=== PATIENT | male | born 1960 | race Caucasian/White ===

== ENCOUNTER 2019-01-26 13:09 | Outpatient (CLI) | payer MEDICARE ==
--- NOTE | 2019-01-26 15:22 | ULT ---
BILATERAL RENAL ULTRASOUND: INDICATION: Chronic kidney disease. FINDINGS: There is symmetric length of each kidney approximately 11 cm. Within the left kidney there is a focus of altered echotexture measuring 2.6 cm and an additional foc us of complex echotexture within the left kidney measuring 2.2 cm. These findings demonstrate hetero geneous echotexture with areas of mild increased echogenicity. Findings favor complex cysts. There is no overt hydronephrosis of either kidney. The urinary bladder is mildly distended. IMPRESSION: 1. No overt hydronephrosis. 2. Mild complexity of cysts within the left kidney. Recommend a 6-month followup renal ultrasound t o confirm stability. POS: ANAIS
== END 2019-01-26 13:10 | disposition home or self-care (01) ==
LOC: SCSULT 13:09
PROVIDERS: ATTEND Internal Medicine Nephrology
DX: N18.3 Chronic kidney disease, stage 3 (moderate) (principal); N28.1 Cyst of kidney, acquired
CPT/HCPCS: 76770

== ENCOUNTER 2019-05-04 15:02 | Outpatient (CLI) | payer MEDICARE ==
--- NOTE | 2019-05-04 16:15 | CT ---
CT CHEST WITHOUT IV CONTRAST: 05/04/19 HISTORY: Thoracic aneurysm without rupture. Aortic valve replacement. COMPARISON: 06/14/17. FINDINGS: Vascular calcifications are present. There is a small 1.7 cm saccular aneurysm arising from the aorti c arch. This appears stable. There is interval increase in size of the descending thoracic aortic ane urysm measuring 5 cm in AP dimension on the current exam. No pleural or pericardial effusions are seen. Right lower lobe lung nodules measuring 8 and 14 mm respectively are stable. No new lung nodules are seen. There are degenerative changes in the spine. IMPRESSION: Interval increase in size of the descending thoracic aortic aneurysm since 06/14/17, currently measuri ng 5 cm. POS: ELVI
== END 2019-05-04 15:03 | disposition home or self-care (01) ==
LOC: BICCT 15:02
PROVIDERS: ATTEND Internal Medicine Cardiovascular Disease
DX: I71.2 Thoracic aortic aneurysm, without rupture (principal); Z95.2 Presence of prosthetic heart valve
CPT/HCPCS: 71250

== ENCOUNTER 2019-08-19 09:22 | Outpatient (CLI) | payer MEDICARE ==
--- NOTE | 2019-08-19 11:43 | ULT ---
RENAL ULTRASOUND: INDICATIONS: Follow up renal cyst. COMPARISON: Renal ultrasound exam performed on 01/26/2019. FINDINGS: The right kidney is imaged and appears unremarkable, measuring 10.5 cm in length. A small cyst, infer ior right kidney, measures 2.2 cm. No hydronephrosis. The left kidney is imaged and measures 10.5 cm in length. A cyst, inferior pole left kidney is seen, measuring 2.2 cm. This appears stable from the prior exam. Prior exam described two left renal cysts. A superior pole cyst seen previously is not identified on today's exam. The urinary bladder is distended and unremarkable. IMPRESSION: Bilateral renal cystic lesions are seen. These lesions appear benign on today's study. POS: OFF
== END 2019-08-19 09:23 | disposition home or self-care (01) ==
LOC: BICULT 09:22
PROVIDERS: ATTEND Internal Medicine Nephrology
DX: N28.1 Cyst of kidney, acquired (principal)
CPT/HCPCS: 76770

== ENCOUNTER 2019-10-13 11:16 | Outpatient (CLI) | payer MEDICARE ==
--- NOTE | 2019-10-13 12:03 | CT ---
CT CHEST WITHOUT CONTRAST CLINICAL INDICATION: Aortic valve replacement. Thoracic aortic aneurysm without rupture. Follow-up evaluation. COMPARISON: Noncontrast CT thorax on 05/04/2019 FINDINGS: Aorta: Prominent atherosclerotic vascular calcifications are again seen involving the coronary arteri es as well as the thoracic aorta. Postsurgical changes of the ascending thoracic aorta and aortic arch including aortic valve replacement are again noted. There is stable irregularity of the aortic a rch and proximal descending thoracic aorta. The proximal descending thoracic aortic aneurysm is again seen which measures 4.9 cm and unchanged in dimension. No periaortic fluid collection is identi fied. 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 Lungs: Lobulated densities in the right lower lobe with associated linear densities is again seen and stable compared to prior study as well as a prior study on 03/06/2012. Given stability over this period of time suggests a benign finding. Calcifications are associated with the largest nodular dens ity. Mediastinum: Limited secondary to lack of intravenous contrast, no enlarged lymph nodes are appreciat ed. Thyroid gland: Grossly normal nonenhanced CT appearance Osseous structures: Median sternotomy wires are again seen. No suspicious osseous lesions are seen. Chest wall: No abnormality visualized. Upper abdomen: Vascular calcifications are seen in the abdominal aorta. Colonic diverticulosis is pre sent at the splenic flexure. Remainder of the upper abdomen demonstrates grossly normal nonenhanced CT appearance. IMPRESSION: 1. Postsurgical changes ascending thoracic aorta related to prior repair of a thoracic aortic aneurys m as well as aortic valve replacement. 2. Focal proximal descending thoracic aortic aneurysm measuring 4.9 cm on stable in dimensions. Dense atherosclerotic vascular calcifications are seen in the thoracic aorta as well as involving the coronary arteries. 3. Stable ectasia of the innominate artery.
== END 2019-10-13 11:17 | disposition home or self-care (01) ==
LOC: BICCT 11:16
PROVIDERS: ATTEND Internal Medicine Cardiovascular Disease
DX: I71.2 Thoracic aortic aneurysm, without rupture (principal); Z95.2 Presence of prosthetic heart valve; I70.0 Atherosclerosis of aorta; I70.90 Unspecified atherosclerosis
CPT/HCPCS: 71250

== ENCOUNTER 2020-09-27 06:19 | Outpatient (CLI) | payer MEDICARE ==
[2020-09-27 13:37] LABS: #Eosinphils 0.1 10x3/uL (0.0-0.5); #Monocytes 0.8 10x3/uL (0.0-1.1); #Neutrophils 4.5 10x3/uL (1.5-8.4); %Basophils 0.4 % (0.0-2.0); %Eosinophils 2.1 % (0.0-6.0); %Lymphocytes 19.5 % (18.0-47.0); %Monocytes 11.2 % (0.0-10.0); %Neutrophils 66.5 % (40.0-75.0); Hemoglobin 12.9 g/dL (14.0-18.0); Mean Platelet Volume 10.2 fl (7.4-10.4); Platelet Count 224 10x3/uL (130-400); RBC Distribution Width 13.1 % (11.5-14.5); Red Blood Cell (RBC) Count 4.16 10x6/uL (4.40-5.80); White Blood Cell (WBC) Count 6.8 10x3/uL (4.5-11.0)
[2020-09-27 13:58] LABS: Anion Gap 18 mmol/L (10-20); BUN (Urea Nitrogen) 42 mg/dL (8.4-25.7); Calc. Creatinine Clearance 0 mL/min (70-130); Calcium 9.4 mg/dL (7.8-10.44); Carbon Dioxide 19 mmol/L (22-29); Chloride 109 mmol/L (98-107); Estimated GFR-MDRD 25; Glucose 74 mg/dL (70-105); Sodium 141 mmol/L (136-145)
[2020-09-28 10:54] LABS: SARS-CoV-2 MS2 Positive; SARS-CoV-2 N Gene Negative; SARS-CoV-2 S Gene Negative; SARS-CoV-2 by NAA Not Detected (NotDetected); SARS-CoV-2 orf1ab Negative
== END 2020-09-27 06:20 | disposition home or self-care (01) ==
LOC: LABBT 06:19
PROVIDERS: ATTEND Internal Medicine
DX: Z01.812 Encounter for preprocedural laboratory examination (principal); Z20.828 Contact with and (suspected) exposure to other viral communicable diseases; I48.0 Paroxysmal atrial fibrillation
CPT/HCPCS: 80048; 85025; U0003; 87635

== ENCOUNTER 2020-09-30 11:09 | Day surgery (SDC) | payer MEDICARE ==
[2020-09-29 09:17] VITALS: BMI 37.7
[2020-09-30] MEDS ORDERED: PROPOFOL 20 ML ONE ×2 (12:36→12:53)
--- NOTE | 2020-09-30 22:23 | DIS ---
DATE OF ADMISSION: 09/30/2020 DATE OF DISCHARGE: 09/30/2020 He was seen in the outpatient facility to undergo electrical cardioversion for atrial fibrillation as well as a transesophageal echocardiogram. This very pleasant gentleman has had a history of atrial fibrillation, which was newly diagnosed approximately 1 month ago. He has been on oral anticoagulation due to having a bioprosthetic aortic valve, and also history of atrial fibrillation. He was placed on the Eliquis. He has also had bypass surgery x2. He has been doing relatively well. He did have a CT scan, which showed in October thoracic aneurysm, which has remained stable. Otherwise, he has been doing relatively well, but then was seen in the office and was found to have atrial fibrillation. His other diagnosis included history of coronary artery disease. He has undergone bypass surgery. He has had aortic valve replacement as well as an ascending aortic aneurysm repair with the valve and with a conduit. He also has a history of hypercholesterolemia, hypertension, atrial fibrillation. He had a history of type 2 diabetes and also chronic kidney disease. DISCHARGE DIAGNOSIS: Atrial fibrillation electrically converted to NSR. PROCEDURES: Included transesophageal echocardiogram and electrical cardioversion for atrial fibrillation back to sinus rhythm. He has remained in sinus rhythm after the procedure with heart rates in the 50s with sinus rhythm. DISCHARGE MEDICATIONS: Same as his admission medications, which include: 1. Lantus insulin. 2. He also takes aspirin 81 mg a day. 3. Glimepiride 4 mg with breakfast. 4. Cymbalta. 5. Glimepiride. 6. Trazodone. 7. Flomax. 9. Red yeast rice. 10. Eliquis 5 mg b.i.d. 11. Metoprolol 100 mg q.a.m., 50 mg also daily. 12. Losartan 50 mg once a day. 13. Zetia 10 mg once a day. 14. Furosemide 20 mg once every other day. 15. Fenofibrate 145 mg once a day. He will follow up with me in the next 2 weeks in the office. He will continue to follow up with the primary care physician. No complications, difficulties were encountered during the procedure. The patient will be stable for discharge and we will see him back in the office. Job ID: [id number] MTDD
--- NOTE | 2020-10-04 16:07 | ECHO ---
INDICATION FOR PROCEDURE: A 60-year-old patient with a history of atrial fibrillation, who was advised to undergo a transesophageal echocardiogram as well as electrical cardioversion of atrial fibrillation. He was taken to the recovery area where he underwent short acting propofol. The transesophageal echocardiogram was performed first. Impressions are as follows. 1. Normal left ventricular systolic function. Ejection fraction of 50% to 55%. 2. Bioprosthetic aortic valve in aortic position, which is functioning normally without evidence of stenosis. 3. Mild mitral valve regurgitation. 4. Mild tricuspid valve regurgitation. 5. No evidence of left atrial or left atrial appendage thrombus. 6. Left atrial dimension of 5.1 cm. Flow in the left atrial appendage is approximately 3 m/sec. 7. There were no difficulties or complications encountered. Job ID: [id number]
--- NOTE | 2020-10-04 16:07 | CCLSPC ---
PROCEDURE: Electrical cardioversion. PROCEDURE IN DETAIL: After a transesophageal echocardiogram was performed that showed no evidence of left atrial or left atrial appendage thrombus, using one attempt with 250 joules, the patient was successfully converted from atrial fibrillation back to sinus rhythm with a heart rate in the 50s. No difficulties or complications were encountered. He was given short acting propofol for the procedure. Job ID: [id number]
--- NOTE | 2020-10-05 06:55 | EKG ---
Test Reason : POST CARDIOVERSION Blood Pressure : / mmHG Vent. Rate : 056 BPM Atrial Rate : 056 BPM P-R Int : 212 ms QRS Dur : 074 ms QT Int : 464 ms P-R-T Axes : 074 013 016 degrees QTc Int : 447 ms Sinus bradycardia with 1st degree A-V block Nonspecific T wave abnormality Abnormal ECG No previous ECGs available Confirmed by MARIELLA CONTRERAS MD ([id number]) on 10/05/2020 6:55:23 AM Referred By: WILLAM Confirmed By:MARIELLA CONTRERAS MD
== END 2020-09-30 14:22 | disposition home or self-care (01) ==
LOC: CCL 11:09
PROVIDERS: ATTEND Internal Medicine Cardiovascular Disease
PROC: 5A2204Z Restoration of Cardiac Rhythm, Single (ICD-10-PCS; principal; 2020-09-30)
PROC: B24BZZ4 Ultrasonography of Heart with Aorta, Transesophageal (ICD-10-PCS; 2020-09-30)
DX: I48.0 Paroxysmal atrial fibrillation (principal); I08.1 Rheumatic disorders of both mitral and tricuspid valves; I71.2 Thoracic aortic aneurysm, without rupture; I25.10 Atherosclerotic heart disease of native coronary artery without angina pectoris; E78.2 Mixed hyperlipidemia; I12.9 Hypertensive chronic kidney disease with stage 1 through stage 4 chronic kidney disease, or unspecified chronic kidney disease; E11.22 Type 2 diabetes mellitus with diabetic chronic kidney disease; N18.9 Chronic kidney disease, unspecified; E78.00 Pure hypercholesterolemia, unspecified; F32.9 Major depressive disorder, single episode, unspecified; E66.9 Obesity, unspecified; Z68.37 Body mass index [BMI] 37.0-37.9, adult; Z86.73 Personal history of transient ischemic attack (TIA), and cerebral infarction without residual deficits; Z87.891 Personal history of nicotine dependence; Z79.01 Long term (current) use of anticoagulants; Z79.4 Long term (current) use of insulin; Z79.82 Long term (current) use of aspirin; Z79.899 Other long term (current) drug therapy; Z88.0 Allergy status to penicillin; Z95.1 Presence of aortocoronary bypass graft; Z95.2 Presence of prosthetic heart valve
CPT/HCPCS: 92960; 93005; 93010; 93312; J2704

== ENCOUNTER 2021-03-20 15:18 | Outpatient (CLI) | payer MEDICARE ==
[2021-03-20 18:01] LABS: INR-International Normal Ratio 1.1; Prothrombin Time 12.3 sec (9.5-12.1)
[2021-03-20 18:04] LABS: Anion Gap 15 mmol/L (10-20); BUN (Urea Nitrogen) 37 mg/dL (8.4-25.7); Calc. Creatinine Clearance 0 mL/min (70-130); Calcium 9.3 mg/dL (7.8-10.44); Carbon Dioxide 23 mmol/L (22-29); Chloride 105 mmol/L (98-107); Glucose 175 mg/dL (70-105); Potassium 5.1 mmol/L (3.5-5.1); Sodium 138 mmol/L (136-145)
[2021-03-20 18:35] LABS: Hemoglobin 13.9 g/dL (13.5-17.5); Mean Corpuscular HGB CONC 32.9 g/dL (32.0-36.0); Mean Corpuscular Hemoglobin 30.8 pg (27.0-33.0); Mean Corpuscular Volume 93.6 fl (81.2-95.1); Mean Platelet Volume 10.9 fl (7.4-10.4); Platelet Count 203 10x3/uL (150-450); RBC Distribution Width 12.8 % (11.5-14.5); Red Blood Cell (RBC) Count 4.51 10x6/uL (4.32-5.72); White Blood Cell (WBC) Count 5.4 10x3/uL (3.5-10.5)
[2021-03-21 02:13] LABS: SARS-CoV-2 PCR by NAA Not Detected (NotDetected)
== END 2021-03-20 15:19 | disposition home or self-care (01) ==
LOC: LABBT 15:18
PROVIDERS: ATTEND Internal Medicine Cardiovascular Disease
DX: Z01.812 Encounter for preprocedural laboratory examination (principal); I48.19 Other persistent atrial fibrillation; Z20.822 Contact with and (suspected) exposure to COVID-19
CPT/HCPCS: 80048; 85027; 85610; U0003; U0005; 87635

== ENCOUNTER 2021-03-22 09:15 | Outpatient (CLI) | payer MEDICARE | END 2021-03-22 09:16 | disposition home or self-care (01) | LOC: BICULT 09:15 | PROVIDERS: ATTEND Internal Medicine Nephrology | DX: N28.1 Cyst of kidney, acquired (principal) | CPT/HCPCS: 76770 ==

== ENCOUNTER 2021-03-23 05:35 | Day surgery (SDC) | payer MEDICARE ==
[2021-03-22 11:41] VITALS: BMI 35.7
[2021-03-23] MEDS ORDERED: Fentanyl 100 MCG/2 ML VIAL ONE ×2 (06:38→09:25)
[2021-03-23] MEDS ORDERED: Heparin 10,000 UNITS/ 10 ML VIAL ONE (06:55)
[2021-03-23] MEDS ORDERED: Heparin 25,000 units/D5W 500 ML ONE (07:08)
[2021-03-23] MEDS ORDERED: Midazolam HCl 2 mg/2 ml Vial ONE ×2 (07:15→07:24)
[2021-03-23] MEDS ORDERED: Succinylcholine 200 MG/10 ml SYRINGE FS ONE (07:37)
[2021-03-23] MEDS ORDERED: Lidocaine 1% PF 5 ML VIAL ONE (07:37)
[2021-03-23] MEDS ORDERED: ePHEDrine Sulfate 50 MG/10 ML VIAL ONE (07:37)
[2021-03-23] MEDS ORDERED: Rocuronium Bromide 10 MG/ML (10ML VIAL) ONE (07:37)
[2021-03-23] MEDS ORDERED: PHENYLEPHRINE-NS 100 MCG/ML 10 ML SYRINGE ONE (07:37)
[2021-03-23] MEDS ORDERED: PROPOFOL 200 MG/20 ML VIAL ONE (07:37)
[2021-03-23] MEDS ORDERED: Ondansetron PF 4 MG/2 ML Vial ONE (07:37)
[2021-03-23] MEDS ORDERED: Dexamethasone 20 MG/5 ML VIAL ONE (07:37)
[2021-03-23] MEDS ORDERED: Glycopyrrolate 0.2 MG/ML 5 ML SYRINGE ONE (07:37)
[2021-03-23] MEDS ORDERED: Protamine Sulfate 50 MG/5 ML VIAL ONE (11:00)
== END 2021-03-23 16:45 | disposition home or self-care (01) ==
LOC: CCL 05:35
PROVIDERS: ATTEND Internal Medicine Cardiovascular Disease
PROC: B246ZZ4 Ultrasonography of Right and Left Heart, Transesophageal (ICD-10-PCS; principal; 2021-03-23)
PROC: 02583ZZ Destruction of Conduction Mechanism, Percutaneous Approach (ICD-10-PCS; 2021-03-23)
PROC: 4A023FZ Measurement of Cardiac Rhythm, Percutaneous Approach (ICD-10-PCS; 2021-03-23)
PROC: 4A0234Z Measurement of Cardiac Electrical Activity, Percutaneous Approach (ICD-10-PCS; 2021-03-23)
PROC: 02K83ZZ Map Conduction Mechanism, Percutaneous Approach (ICD-10-PCS; 2021-03-23)
DX: I48.19 Other persistent atrial fibrillation (principal); I25.10 Atherosclerotic heart disease of native coronary artery without angina pectoris; I12.9 Hypertensive chronic kidney disease with stage 1 through stage 4 chronic kidney disease, or unspecified chronic kidney disease; E11.22 Type 2 diabetes mellitus with diabetic chronic kidney disease; N18.9 Chronic kidney disease, unspecified; E78.5 Hyperlipidemia, unspecified; I69.354 Hemiplegia and hemiparesis following cerebral infarction affecting left non-dominant side; Z79.01 Long term (current) use of anticoagulants; Z79.4 Long term (current) use of insulin; Z79.82 Long term (current) use of aspirin; Z79.899 Other long term (current) drug therapy; Z88.0 Allergy status to penicillin; Z95.1 Presence of aortocoronary bypass graft; Z95.2 Presence of prosthetic heart valve
CPT/HCPCS: 36416; 76942; 85347; 92960; 93005; 93312; 93613; 93655; 93656; 93662; C1730; C1732; C1759; C1894; C2630; J1100; J1644; J2250; J2405; J2704; J2720; J3010

== ENCOUNTER 2022-06-26 10:08 | Outpatient (CLI) | payer BC ==
[2022-06-26 11:07] LABS: Hemoglobin 11.3 g/dL (13.5-17.5); Mean Corpuscular HGB CONC 33.8 g/dL (32.0-36.0); Mean Corpuscular Volume 91.5 fl (81.2-95.1); Mean Platelet Volume 10.1 fl (7.4-10.4); Platelet Count 229 10x3/uL (150-450); RBC Distribution Width 12.2 % (11.5-14.5); Red Blood Cell (RBC) Count 3.65 10x6/uL (4.32-5.72); White Blood Cell (WBC) Count 3.8 10x3/uL (3.5-10.5)
[2022-06-26 11:11] LABS: Bilirubin Neg (Negative); Blood, Urine Negative (Negative); Clarity Clear (Clear); Glucose, Urine (Dipstick) 50 mg/dL (Negative); Ketone, Urine Negative (Negative); Leukocyte Negative (Negative); Nitrite Negative (Negative); Protein, Urine (Dipstick) Negative (Neg-Trace); Specific Gravity, Urine 1.015 (1.002-1.036); Urobilinogen Normal mg/dL (Less than 2)
[2022-06-26 11:18] LABS: PTT 27.8 sec (22.0-33.0); Prothrombin Time 11.2 sec (9.5-12.1)
[2022-06-26 11:21] LABS: Anion Gap 13 mmol/L (10-20); BUN (Urea Nitrogen) 29 mg/dL (8.4-25.7); Calc. Creatinine Clearance 0 mL/min (70-130); Calcium 9.8 mg/dL (7.8-10.44); Carbon Dioxide 23 mmol/L (23-31); Chloride 108 mmol/L (98-107); Estimated GFR 37; Glucose 92 mg/dL (80-115); Potassium 4.6 mmol/L (3.5-5.1); Sodium 139 mmol/L (136-145)
[2022-06-26 11:34] LABS: Bacteria/HPF None Seen HPF (None Seen); RBC/HPF None Seen HPF (0-3); Squamous Epithelial None Seen HPF (0-3); WBC/HPF None Seen HPF (0-3)
== END 2022-06-26 10:09 | disposition home or self-care (01) ==
LOC: LABBT 10:08
PROVIDERS: ATTEND Urology
DX: Z01.812 Encounter for preprocedural laboratory examination (principal); Z20.822 Contact with and (suspected) exposure to COVID-19
CPT/HCPCS: 80048; 81001; 85027; 85610; 85730; 87086; 87811

== ENCOUNTER 2022-06-29 06:01 | Day surgery (SDC) | payer BC ==
[2022-06-27 12:23] VITALS: BMI 28.8
[2022-06-29] MEDS ORDERED: Dextrose 50% Abboject 50 ML SYRINGE ONE (07:00)
[2022-06-29] MEDS ORDERED: B & O ONE (07:25)
[2022-06-29] MEDS ORDERED: Levofloxacin 500 mg/D5W 100 ml Premix Bag ONE (07:35)
[2022-06-29] MEDS ORDERED: PROPOFOL 200 MG/20 ML VIAL ONE (07:50)
[2022-06-29] MEDS ORDERED: Phenazopyridine HCl 100 MG TAB ONE (08:46)
[2022-06-29] MEDS ORDERED: Oxybutynin 5 MG TAB ONE (08:46)
== END 2022-06-29 09:55 | disposition home or self-care (01) ==
LOC: SDC 06:01
PROVIDERS: ATTEND Urology
PROC: 0T7D8DZ Dilation of Urethra with Intraluminal Device, Via Natural or Artificial Opening Endoscopic (ICD-10-PCS; principal; 2022-06-29)
DX: N40.1 Benign prostatic hyperplasia with lower urinary tract symptoms (principal); N13.8 Other obstructive and reflux uropathy; E11.22 Type 2 diabetes mellitus with diabetic chronic kidney disease; N18.9 Chronic kidney disease, unspecified; E78.5 Hyperlipidemia, unspecified; J44.9 Chronic obstructive pulmonary disease, unspecified; K21.9 Gastro-esophageal reflux disease without esophagitis; I48.91 Unspecified atrial fibrillation; Z79.01 Long term (current) use of anticoagulants; Z79.4 Long term (current) use of insulin; Z79.82 Long term (current) use of aspirin; Z79.84 Long term (current) use of oral hypoglycemic drugs; Z79.899 Other long term (current) drug therapy; Z88.0 Allergy status to penicillin; Z95.1 Presence of aortocoronary bypass graft
CPT/HCPCS: 36416; J1956; J2704; J7999; L8699

== ENCOUNTER 2022-06-30 08:53 | Emergency (ER) | payer BC ==
[2022-06-30 10:06] LABS: #Lymphocytes 0.8 thou/uL (1.20-3.40); #Monocytes 0.7 thou/uL (0.11-0.59); #Neutrophils 8.5 thou/uL (1.40-6.50); %Lymphocytes 8.2 % (21.0-51.0); %Monocytes 7.2 % (0.0-10.0); %Neutrophils 84.6 % (42.0-75.0); Hemoglobin 12.1 g/dL (14.0-18.0); Mean Corpuscular Hemoglobin 32.5 pg (27.0-31.0); Mean Corpuscular Volume 92.7 fL (78.0-98.0); Mean Platelet Volume 7.6 fL (7.4-10.4); Platelet Count 221 thou/uL (130-400); Red Blood Cell (RBC) Count 3.73 mill/uL (4.70-6.10)
[2022-06-30 10:18] LABS: ALT (SGPT) 26 U/L (8-55); AST (SGOT) 47 U/L (5-34); Albumin 4.5 g/dL (3.4-4.8); Alkaline Phosphatase 52 U/L (40-110); Anion Gap 16 mmol/L (10-20); BUN (Urea Nitrogen) 25 mg/dL (8.4-25.7); Bilirubin, Total 0.9 mg/dL (0.2-1.2); Calc. Creatinine Clearance 0 mL/min (70-130); Carbon Dioxide 24 mmol/L (23-31); Chloride 99 mmol/L (98-107); Estimated GFR 35; Glucose 112 mg/dL (80-115); Potassium 4.3 mmol/L (3.5-5.1); Protein, Total 7.5 g/dL (5.8-8.1); Sodium 135 mmol/L (136-145)
[2022-06-30 10:22] LABS: Bacteria/HPF 4+ HPF (None Seen); Bilirubin Negative (Negative); Blood, Urine 3+ (Negative); Clarity Turbid (Clear); Glucose, Urine (Dipstick) Normal (Negative); Ketone, Urine Negative (Negative); Leukocyte Negative Leu/uL (Negative); Nitrite Negative (Negative); Protein, Urine (Dipstick) 100 mg/dL (Neg-Trace); RBC/HPF Greater than 50 HPF (0-3); Specific Gravity, Urine 1.017 (1.002-1.036); Squamous Epithelial None Seen HPF (0-3); Urobilinogen Normal mg/dL (Less than 2); pH, Urine 5.5 (5.0-9.0)
== END 2022-06-30 12:19 | disposition home or self-care (01) ==
LOC: ERS 08:53
DX: N30.01 Acute cystitis with hematuria (principal); N40.1 Benign prostatic hyperplasia with lower urinary tract symptoms; R33.8 Other retention of urine; E11.9 Type 2 diabetes mellitus without complications; I10 Essential (primary) hypertension; E78.5 Hyperlipidemia, unspecified; E78.00 Pure hypercholesterolemia, unspecified; Z86.73 Personal history of transient ischemic attack (TIA), and cerebral infarction without residual deficits
CPT/HCPCS: 36415; 51702; 80053; 81003; 81015; 85025; 87086

== ENCOUNTER 2023-06-13 09:10 | Day surgery (SDC) | payer MEDICARE ==
[2023-06-06 10:45] VITALS: BMI 31.9
[2023-06-13] MEDS ORDERED: fentaNYL 50 mcg/mL 1 mL Vial ONE ×2 (14:12→14:51)
[2023-06-13] MEDS ORDERED: LevoFLOXacin 500 mg/D5W 100 ML BAG ONE (14:23)
[2023-06-13] MEDS ORDERED: Dexamethasone 20 MG/5 ML VIAL ONE (14:37)
[2023-06-13] MEDS ORDERED: ePHEDrine Sulfate 50 MG/10 ML VIAL ONE (14:37)
[2023-06-13] MEDS ORDERED: Lidocaine 1% PF 5 ML VIAL ONE (14:37)
[2023-06-13] MEDS ORDERED: PHENYLEPHRINE-NS 100 MCG/ML 10 ML SYRINGE ONE (14:37)
[2023-06-13] MEDS ORDERED: PROPOFOL 200 MG/20 ML VIAL ONE (14:37)
[2023-06-13] MEDS ORDERED: Ondansetron PF 4 MG/2 ML Vial ONE (14:37)
[2023-06-13] MEDS ORDERED: Oxybutynin 5 MG TAB ONE (15:49)
== END 2023-06-13 16:55 | disposition home or self-care (01) ==
LOC: SDC 09:10
PROVIDERS: ATTEND Urology
PROC: 0V507ZZ Destruction of Prostate, Via Natural or Artificial Opening (ICD-10-PCS; principal; 2023-06-13)
DX: N40.1 Benign prostatic hyperplasia with lower urinary tract symptoms (principal); N13.8 Other obstructive and reflux uropathy; R39.15 Urgency of urination; E78.00 Pure hypercholesterolemia, unspecified; I12.9 Hypertensive chronic kidney disease with stage 1 through stage 4 chronic kidney disease, or unspecified chronic kidney disease; N18.30 Chronic kidney disease, stage 3 unspecified; E11.65 Type 2 diabetes mellitus with hyperglycemia; J44.9 Chronic obstructive pulmonary disease, unspecified; I48.0 Paroxysmal atrial fibrillation; K21.9 Gastro-esophageal reflux disease without esophagitis; I25.10 Atherosclerotic heart disease of native coronary artery without angina pectoris; N52.01 Erectile dysfunction due to arterial insufficiency; Z86.73 Personal history of transient ischemic attack (TIA), and cerebral infarction without residual deficits; Z79.82 Long term (current) use of aspirin; Z95.2 Presence of prosthetic heart valve; Z88.0 Allergy status to penicillin
CPT/HCPCS: 52601; 82962; J3010; 36416; J1100; J1956; J2405; J2704